=== PATIENT | female | born 1960 | race Two or more races ===

== ENCOUNTER 2023-06-16 17:09 | Inpatient (IN) | payer MEDICAID ==
[~2023-06-16] VITALS: Ht 167.6 cm; Wt 72.9 kg
[2023-06-16 18:16] LABS: BASOPHILS % (AUTO) 0.2 % (0.0-2.0); EOSINOPHILS % (AUTO) 0 % (1.0-6.0); HEMATOCRIT 31.2 % (36-46); LYMPHOCYTES # (AUTO) 0.5 K/uL (1.0-4.8); LYMPHOCYTES % (AUTO) 2.5 % (22.0-44.0); MEAN CORPUSCULAR HEMOGLOBIN 25.1 pg (26.0-34.0); MEAN CORPUSCULAR HGB CONC 32.2 G/dL (31.0-37.0); MEAN CORPUSCULAR VOLUME 78 fL (80-100); MONOCYTES % (AUTO) 4.8 % (2.0-9.0); NEUTROPHILS # (AUTO) 19.7 K/uL (1.8-7.7); PLATELET COUNT (AUTO) 630 K/uL (150-450); RED CELL DISTRIBUTION WIDTH 15.1 % (11.5-14.5); WHITE BLOOD COUNT (AUTO) 21.3 K/uL (4.5-11.0)
[2023-06-16 18:17] LABS: NEUTROPHILS % (AUTO) 92.5 % (40.0-70.0)
[2023-06-16 18:25] LABS: CALCIUM, TOTAL 9.2 mg/dL (8.8-10.5); CREATININE 1.04 mg/dL (0.60-1.30); POTASSIUM 3.9 mmol/L (3.5-5.1)
[2023-06-16 18:31] LABS: ALBUMIN 2.8 g/dL (3.4-5.0); BILIRUBIN,TOTAL 0.4 mg/dL (0.1-1.0); TOTAL PROTEIN, SERUM 7.9 g/dL (6.4-8.2)
[2023-06-16 18:35] LABS: TROPONIN I-HIGH SENSITIVITY 126 ng/L (<51)
[2023-06-16 18:42] LABS: APPEARANCE,URINE CLEAR (CLEAR); BILIRUBIN,URINE NEGATIVE (NEGATIVE); COLOR,URINE YELLOW (YELLOW); GLUCOSE, URINE (UA) 300-500 mg/dL (NEGATIVE); KETONES,URINE TRACE mg/dL (NEGATIVE); LEUKOCYTE ESTERASE ,URINE SMALL (NEGATIVE); NITRATE,URINE POSITIVE (NEGATIVE); OCCULT BLOOD,URINE TRACE (NEGATIVE); PH,URINE 5.5 (5.0-8.0); PROTEIN,URINE 100-200,SEE CONFIRM mg/dL (NEGATIVE); SPECIFIC GRAVITIY, URINE 1.016 (1.003-1.030); UROBILINOGEN,URINE <=1.0 mg/dL (<=1.0)
[2023-06-16 18:52] LABS: AMORPHOUS SEDIMENT,UR Few /LPF (None Seen); BACTERIA,URINE Few /HPF (None Seen); RBC,URINE 0-2 /HPF (0-2); SQUAMOUS EPITHELIAL CELL,UR Few /LPF (None Seen); SULFOSALICYLIC ACID,URINE 2+ (Negative)
[2023-06-16 19:49] LABS: B-TYPE NATRIURETIC PEPTIDE 68 pg/mL (0-100)
[2023-06-16 19:51] LABS: LACTIC ACID 2.1 mmol/L (0.4-2.0)
[2023-06-16] MEDS ORDERED: 0.9% SODIUM CHLORIDE 10 ML SYRINGE IVP PRN (20:15)
[2023-06-16] MEDS: ASPIRIN 325 MG TABLET PO ONE (21:00)
[2023-06-16] MEDS: NITROGLYCERIN 2% (1 GM=INCH) OINTMENT PACKET TP ONE (21:00)
[2023-06-16 21:44] VITALS: BP 120/62; PULSE 93; RESP 19; TEMP 100.9
[2023-06-16] MEDS ORDERED: DEXTROSE 50%-WATER 25 GM/50 ML SYRINGE IVP PRN (22:30)
[2023-06-16 22:48] LABS: GLUCOSE,RANDOM 237 mg/dL (70-110); LACTATE DEHYDROGENASE 150 U/L (81-234)
[2023-06-16] MEDS: SODIUM CHLORIDE 0.9% 2,200 ML IV ONE (23:14)
[2023-06-16] MEDS: INSULIN LISPRO 100 UNITS/ML SQ PRN (23:16)
[2023-06-16] MEDS: INSULIN GLARGINE,HUM.REC.ANLOG 100 UNITS/ML SQ SCH (23:16)
[2023-06-16 23:21] LABS: TROPONIN I-HIGH SENSITIVITY 121 ng/L (<51)
[2023-06-16] MEDS: ACETAMINOPHEN 650 MG/20.3 ML SOLUTION UDCUP PO PRN (23:24)
[2023-06-16] MEDS: CefTRIAXone 1 GM/DEXTROSE 50 ML IV ONE (23:24)
[2023-06-16 23:56] LABS: % IRON SATURATION 3.6 % (22-44)
[2023-06-17] VITALS (8 sets, daily range): BP systolic 108–161; BP diastolic 50–77; PULSE 75–97; RESP 16–19; TEMP 98.1–102.9
[2023-06-17] MEDS ORDERED: ONDANSETRON HCL 4 MG/2 ML VIAL IVP PRN
[2023-06-17] MEDS ORDERED: SITA1TBM7 PO ×2 (00:13→00:39)
[2023-06-17] MEDS ORDERED: METF-283 PO (00:14)
[2023-06-17] MEDS ORDERED: NEBI2.5T6 (00:16)
[2023-06-17] MEDS: HEPARIN SODIUM,PORCINE 5,000 UNITS/ML VIAL SQ SCH (00:34)
[2023-06-17] MEDS ORDERED: METF-283 (00:39)
[2023-06-17] MEDS ORDERED: NEBI5TAB11 PO (00:39)
[2023-06-17] MEDS ORDERED: INSLAN SQ (00:39)
[2023-06-17 04:38] LABS: INFLUENZA A-RTPCR,COMBO NEGATIVE (NEGATIVE); INFLUENZA B-RTPCR,COMBO NEGATIVE (NEGATIVE); RESPIRATORY SYNCYTIAL VRS-PCR NEGATIVE (NEGATIVE); SARS COVID19 RTPCR, COMBO NEGATIVE (NEGATIVE)
[2023-06-17 08:47] LABS: TROPONIN I-HIGH SENSITIVITY 71 ng/L (<51)
[2023-06-17] MEDS: DOCUSATE SODIUM 100 MG CAPSULE PO SCH (09:01)
[2023-06-17] MEDS: ACETAMINOPHEN 325 MG TABLET PO PRN (09:04)
[2023-06-17] MEDS: SODIUM CHLORIDE 0.9% 1,000 ML IV ONE (16:16)
[2023-06-17] MEDS: PIPERACILLIN/TAZO 3.375 GM/D5W 50 ML IV SCH (16:17)
[2023-06-17 23:08] LABS: GLUCOMETER DEV NAME(LOC) 5S.1B; GLUCOSE,POINT OF CARE 242 MG/DL (70-110)
[2023-06-17 23:08] LABS: GLUCOMETER DEV NAME(LOC) 5S.1B; GLUCOSE,POINT OF CARE 211 MG/DL (70-110)
[2023-06-17] MEDS: *CLINICAL-LEVOFLOXACIN IVPB DOSING CLINICAL ONE (23:14)
[2023-06-17] MEDS: LEVOFLOXACIN 750 MG/D5% WATER 150 ML IV SCH (23:34)
[2023-06-18 01:27] LABS: GLUCOMETER DEV NAME(LOC) 5N.1D; GLUCOSE,POINT OF CARE 238 MG/DL (70-110)
[2023-06-18 01:27] LABS: GLUCOMETER DEV NAME(LOC) 5N.1D; GLUCOSE,POINT OF CARE 95 MG/DL (70-110)
[2023-06-18 01:27] LABS: GLUCOMETER DEV NAME(LOC) 5N.1D; GLUCOSE,POINT OF CARE 271 MG/DL (70-110)
[2023-06-18 04:57] VITALS: BP 100/49; PULSE 73; RESP 16; TEMP 98.7
[2023-06-18 06:33] LABS: BASOPHILS % (AUTO) 0.5 % (0.0-2.0); EOSINOPHILS % (AUTO) 1.2 % (1.0-6.0); HEMOGLOBIN 9.5 g/dL (12.0-16.0); LYMPHOCYTES # (AUTO) 1.8 K/uL (1.0-4.8); LYMPHOCYTES % (AUTO) 16.8 % (22.0-44.0); MEAN CORPUSCULAR HEMOGLOBIN 25.7 pg (26.0-34.0); MEAN CORPUSCULAR HGB CONC 32.8 G/dL (31.0-37.0); MEAN CORPUSCULAR VOLUME 78 fL (80-100); MONOCYTES # (AUTO) 0.8 K/uL (0.1-1.0); MONOCYTES % (AUTO) 8.1 % (2.0-9.0); NEUTROPHILS # (AUTO) 7.6 K/uL (1.8-7.7); NEUTROPHILS % (AUTO) 73.4 % (40.0-70.0); PLATELET COUNT (AUTO) 613 K/uL (150-450); RED CELL DISTRIBUTION WIDTH 15.4 % (11.5-14.5); WHITE BLOOD COUNT (AUTO) 10.4 K/uL (4.5-11.0)
[2023-06-18 06:40] LABS: ANION GAP 7 mmol/L (8-16); CALCIUM, TOTAL 8.4 mg/dL (8.8-10.5); CARBON DIOXIDE 27 mmol/L (22-29); CHLORIDE 102 mmol/L (98-107); CREATININE 0.79 mg/dL (0.60-1.30); GLOMERULAR FILTR. RATE CALC > 60 mL/min (>60); GLUCOSE,RANDOM 203 mg/dL (70-110); POTASSIUM 3.8 mmol/L (3.5-5.1); SODIUM SERUM 136 mmol/L (136-145); UREA NITROGEN, BLOOD 11 mg/dL (7-18)
[2023-06-18 06:51] LABS: TROPONIN I-HIGH SENSITIVITY 32 ng/L (<51)
[2023-06-18 07:05] LABS: GLUCOMETER DEV NAME(LOC) 5N.1D; GLUCOSE,POINT OF CARE 190 MG/DL (70-110)
[2023-06-18 08:00] VITALS: BP 142/60; PULSE 88; RESP 16; TEMP 98.3
[2023-06-18 12:00] VITALS: BP 132/55; PULSE 91; RESP 16; TEMP 100.7
[2023-06-18] MEDS ORDERED: SODIUM CHLORIDE 0.9% 100 ML ONE (15:38)
[2023-06-18] MEDS ORDERED: IOHEXOL 350 MG/ML 100 ML VIAL ONE (15:38)
[2023-06-18 16:00] VITALS: BP 116/54; PULSE 85; RESP 18; TEMP 99.2
[2023-06-18 17:30] LABS: GLUCOMETER DEV NAME(LOC) 5N.1D; GLUCOSE,POINT OF CARE 317 MG/DL (70-110)
[2023-06-18 17:30] LABS: GLUCOMETER DEV NAME(LOC) 5N.1D; GLUCOSE,POINT OF CARE 257 MG/DL (70-110)
[2023-06-18 18:54] VITALS: TEMP 101.3
[2023-06-18 19:40] VITALS: BP 104/53; PULSE 100; RESP 18; TEMP 101.1
[2023-06-19] VITALS (10 sets, daily range): BP systolic 116–140; BP diastolic 51–77; PULSE 75–88; RESP 17–20; TEMP 97.9–100.6
[2023-06-19 08:22] LABS: BASOPHILS % (AUTO) 0.9 % (0.0-2.0); EOSINOPHILS % (AUTO) 1.3 % (1.0-6.0); HEMATOCRIT 27.6 % (36-46); HEMOGLOBIN 9.2 g/dL (12.0-16.0); LYMPHOCYTES # (AUTO) 1.6 K/uL (1.0-4.8); LYMPHOCYTES % (AUTO) 17.1 % (22.0-44.0); MEAN CORPUSCULAR HGB CONC 33.4 G/dL (31.0-37.0); MEAN CORPUSCULAR VOLUME 78 fL (80-100); MONOCYTES # (AUTO) 0.8 K/uL (0.1-1.0); MONOCYTES % (AUTO) 8.1 % (2.0-9.0); NEUTROPHILS % (AUTO) 72.6 % (40.0-70.0); PLATELET COUNT (AUTO) 692 K/uL (150-450); RED BLOOD CELL COUNT(AUTO) 3.55 MIL/uL (4.00-5.20); RED CELL DISTRIBUTION WIDTH 15.1 % (11.5-14.5); WHITE BLOOD COUNT (AUTO) 9.6 K/uL (4.5-11.0)
[2023-06-19 08:46] LABS: ALANINE AMINOTRANSFERASE 23 U/L (12-78); ALBUMIN 2.3 g/dL (3.4-5.0); ALKALINE PHOSPHATASE 146 U/L (46-116); ANION GAP 6 mmol/L (8-16); ASPARTATE AMINOTRANSFERASE 18 U/L (15-37); BILIRUBIN,TOTAL 0.5 mg/dL (0.1-1.0); CALCIUM, TOTAL 8.7 mg/dL (8.8-10.5); CARBON DIOXIDE 29 mmol/L (22-29); CHLORIDE 99 mmol/L (98-107); CREATININE 0.85 mg/dL (0.60-1.30); GLOMERULAR FILTR. RATE CALC > 60 mL/min (>60); GLUCOSE,RANDOM 216 mg/dL (70-110); POTASSIUM 4.1 mmol/L (3.5-5.1); SODIUM SERUM 134 mmol/L (136-145); TOTAL PROTEIN, SERUM 7.2 g/dL (6.4-8.2); UREA NITROGEN, BLOOD 13 mg/dL (7-18)
[2023-06-19 10:06] LABS: GLUCOMETER DEV NAME(LOC) 5S.1B; GLUCOSE,POINT OF CARE 267 MG/DL (70-110)
[2023-06-19] MEDS ORDERED: SITA100 PO (11:15)
[2023-06-19] MEDS ORDERED: METF-1211 PO (11:15)
[2023-06-19 11:36] LABS: GLUCOMETER DEV NAME(LOC) 5N.1D; GLUCOSE,POINT OF CARE 225 MG/DL (70-110)
[2023-06-19 12:36] LABS: GLUCOMETER DEV NAME(LOC) 5N.1D; GLUCOSE,POINT OF CARE 342 MG/DL (70-110)
[2023-06-19] MEDS ORDERED: SODIUM CHLORIDE 0.9% 500 ML IV ONE (21:55)
[2023-06-20] VITALS: TEMP 99
[2023-06-20 00:26] LABS: GLUCOMETER DEV NAME(LOC) 6S.2; GLUCOSE,POINT OF CARE 360 MG/DL (70-110)
[2023-06-20 04:12] VITALS: BP 126/59; PULSE 72; RESP 18; TEMP 98.2
[2023-06-20 06:50] LABS: GLUCOMETER DEV NAME(LOC) 6N.2B; GLUCOSE,POINT OF CARE 249 MG/DL (70-110)
[2023-06-20 07:10] LABS: GLUCOMETER DEV NAME(LOC) 5N.1D; GLUCOSE,POINT OF CARE 323 MG/DL (70-110)
[2023-06-20 07:58] VITALS: BP 112/59; PULSE 70; RESP 18; TEMP 97.3
[2023-06-20] MEDS: ERTAPENEM SODIUM 1 GM in SODIUM CHLORIDE 0.9% 50 ML IV SCH (13:32)
[2023-06-20 16:29] VITALS: BP 132/64; PULSE 75; RESP 18; TEMP 98.2
[2023-06-20 19:20] VITALS: BP 129/60; PULSE 81; RESP 20; TEMP 98.3
[2023-06-20 19:36] LABS: GLUCOMETER DEV NAME(LOC) 4E.2; GLUCOSE,POINT OF CARE 325 MG/DL (70-110)
[2023-06-20 19:36] LABS: GLUCOMETER DEV NAME(LOC) 6N.2B; GLUCOSE,POINT OF CARE 411 MG/DL (70-110)
[2023-06-20] MEDS: INSULIN GLARGINE,HUM.REC.ANLOG 100 UNITS/ML SQ SCH (20:10)
[2023-06-20] MEDS ORDERED: DEXTROSE 50%-WATER 25 GM/50 ML SYRINGE IVP PRN (21:45)
[2023-06-20] MEDS: INSULIN LISPRO 100 UNITS/ML SQ PRN (21:46)
[2023-06-21] MEDS: PEG 400/HYPROMELLOSE/GLYCERIN 15 ML OPHTHALMIC SOLUTION OU PRN (00:08)
[2023-06-21 00:16] LABS: GLUCOMETER DEV NAME(LOC) 6N.2B; GLUCOSE,POINT OF CARE 402 MG/DL (70-110)
[2023-06-21 04:15] VITALS: BP 116/62; PULSE 75; RESP 18; TEMP 97.5
[2023-06-21 06:35] LABS: GLUCOMETER DEV NAME(LOC) 4E.2; GLUCOSE,POINT OF CARE 148 MG/DL (70-110)
[2023-06-21 08:26] VITALS: BP 117/62; PULSE 68; RESP 18; TEMP 98
[2023-06-21 19:35] VITALS: BP 133/58; PULSE 84; RESP 20; TEMP 98.1
[2023-06-22 01:16] LABS: GLUCOMETER DEV NAME(LOC) 6N.2B; GLUCOSE,POINT OF CARE 312 MG/DL (70-110)
[2023-06-22 01:16] LABS: GLUCOMETER DEV NAME(LOC) 6S.2; GLUCOSE,POINT OF CARE 289 MG/DL (70-110)
[2023-06-22 01:16] LABS: GLUCOMETER DEV NAME(LOC) 6N.2B; GLUCOSE,POINT OF CARE 378 MG/DL (70-110)
[2023-06-22 04:45] VITALS: BP 132/65; PULSE 78; RESP 18; TEMP 98.5
[2023-06-22 08:02] VITALS: BP 112/64; PULSE 78; RESP 20; TEMP 98.4
[2023-06-22 12:16] LABS: GLUCOMETER DEV NAME(LOC) 6N.2B; GLUCOSE,POINT OF CARE 179 MG/DL (70-110)
[2023-06-22 12:16] LABS: GLUCOMETER DEV NAME(LOC) 6N.2B; GLUCOSE,POINT OF CARE 266 MG/DL (70-110)
[2023-06-22 15:53] VITALS: BP 129/68; PULSE 78; RESP 19; TEMP 97.7
[2023-06-22 18:10] LABS: GLUCOMETER DEV NAME(LOC) 4E.2; GLUCOSE,POINT OF CARE 279 MG/DL (70-110)
[2023-06-22 19:45] VITALS: BP 135/73; PULSE 84; RESP 20; TEMP 98.1
[2023-06-22] MEDS: INSULIN GLARGINE,HUM.REC.ANLOG 100 UNITS/ML SQ SCH (20:36)
[2023-06-23 03:36] LABS: GLUCOMETER DEV NAME(LOC) 6S.2; GLUCOSE,POINT OF CARE 376 MG/DL (70-110)
[2023-06-23 04:56] VITALS: BP 140/68; PULSE 73; RESP 20; TEMP 98.2
[2023-06-23 07:26] LABS: ANION GAP 9 mmol/L (8-16); CALCIUM, TOTAL 9.3 mg/dL (8.8-10.5); CARBON DIOXIDE 27 mmol/L (22-29); CHLORIDE 100 mmol/L (98-107); CREATININE 0.81 mg/dL (0.60-1.30); GLOMERULAR FILTR. RATE CALC > 60 mL/min (>60); GLUCOSE,RANDOM 225 mg/dL (70-110); SODIUM SERUM 136 mmol/L (136-145); UREA NITROGEN, BLOOD 16 mg/dL (7-18)
[2023-06-23 08:14] VITALS: BP 135/68; PULSE 74; RESP 19; TEMP 98.2
[2023-06-23 13:31] LABS: GLUCOMETER DEV NAME(LOC) 4E.2; GLUCOSE,POINT OF CARE 211 MG/DL (70-110)
[2023-06-23 13:31] LABS: GLUCOMETER DEV NAME(LOC) 6N.2B; GLUCOSE,POINT OF CARE 341 MG/DL (70-110)
[2023-06-23 21:02] VITALS: BP 157/76; PULSE 85; RESP 19; TEMP 98.1
[2023-06-23 23:05] LABS: GLUCOMETER DEV NAME(LOC) 6N.2B; GLUCOSE,POINT OF CARE 296 MG/DL (70-110)
[2023-06-23 23:05] LABS: GLUCOMETER DEV NAME(LOC) 6N.2B; GLUCOSE,POINT OF CARE 351 MG/DL (70-110)
[2023-06-24 04:15] VITALS: BP 116/65; PULSE 75; RESP 18; TEMP 98
[2023-06-24 07:03] LABS: BASOPHILS % (AUTO) 1.3 % (0.0-2.0); EOSINOPHILS % (AUTO) 2.8 % (1.0-6.0); HEMATOCRIT 31.5 % (36-46); HEMOGLOBIN 10.4 g/dL (12.0-16.0); LYMPHOCYTES # (AUTO) 3.3 K/uL (1.0-4.8); LYMPHOCYTES % (AUTO) 40.1 % (22.0-44.0); MEAN CORPUSCULAR HEMOGLOBIN 25.8 pg (26.0-34.0); MEAN CORPUSCULAR HGB CONC 33.2 G/dL (31.0-37.0); MEAN CORPUSCULAR VOLUME 78 fL (80-100); MONOCYTES # (AUTO) 0.9 K/uL (0.1-1.0); MONOCYTES % (AUTO) 10.6 % (2.0-9.0); NEUTROPHILS # (AUTO) 3.7 K/uL (1.8-7.7); NEUTROPHILS % (AUTO) 45.2 % (40.0-70.0); RED BLOOD CELL COUNT(AUTO) 4.04 MIL/uL (4.00-5.20); RED CELL DISTRIBUTION WIDTH 15.7 % (11.5-14.5); WHITE BLOOD COUNT (AUTO) 8.2 K/uL (4.5-11.0)
[2023-06-24 07:28] LABS: ALANINE AMINOTRANSFERASE 18 U/L (12-78); ALBUMIN 2.6 g/dL (3.4-5.0); ALKALINE PHOSPHATASE 128 U/L (46-116); ANION GAP 8 mmol/L (8-16); ASPARTATE AMINOTRANSFERASE 16 U/L (15-37); BILIRUBIN,TOTAL 0.3 mg/dL (0.1-1.0); CALCIUM, TOTAL 9.2 mg/dL (8.8-10.5); CARBON DIOXIDE 28 mmol/L (22-29); CHLORIDE 100 mmol/L (98-107); CREATININE 0.77 mg/dL (0.60-1.30); GLOMERULAR FILTR. RATE CALC > 60 mL/min (>60); GLUCOSE,RANDOM 155 mg/dL (70-110); POTASSIUM 3.9 mmol/L (3.5-5.1); SODIUM SERUM 136 mmol/L (136-145); TOTAL PROTEIN, SERUM 7.9 g/dL (6.4-8.2); UREA NITROGEN, BLOOD 17 mg/dL (7-18)
[2023-06-24 07:41] LABS: PLATELET COUNT (AUTO) 917 K/uL (150-450)
[2023-06-24 08:22] VITALS: BP 131/73; PULSE 77; RESP 20; TEMP 98.7
[2023-06-24 10:00] LABS: GLUCOMETER DEV NAME(LOC) 6S.2; GLUCOSE,POINT OF CARE 149 MG/DL (70-110)
[2023-06-24 10:40] LABS: RBC MORPHOLOGY COMMENT ABNORMAL RBC MORPH
[2023-06-24 12:15] LABS: GLUCOMETER DEV NAME(LOC) 6S.2; GLUCOSE,POINT OF CARE 236 MG/DL (70-110)
[2023-06-24 16:43] VITALS: BP 129/60; PULSE 78; RESP 20; TEMP 98.5
[2023-06-24 20:01] LABS: GLUCOMETER DEV NAME(LOC) 4E.2; GLUCOSE,POINT OF CARE 293 MG/DL (70-110)
[2023-06-24 20:33] VITALS: BP 140/84; PULSE 84; RESP 18; TEMP 98.2
[2023-06-24] MEDS: INSULIN GLARGINE,HUM.REC.ANLOG 100 UNITS/ML SQ SCH (21:32)
[2023-06-25 00:41] LABS: GLUCOMETER DEV NAME(LOC) 4E.2; GLUCOSE,POINT OF CARE 257 MG/DL (70-110)
[2023-06-25 05:16] VITALS: BP 127/73; PULSE 56; RESP 18; TEMP 98
[2023-06-25 06:16] LABS: GLUCOMETER DEV NAME(LOC) 4E.2; GLUCOSE,POINT OF CARE 167 MG/DL (70-110)
[2023-06-25 07:17] LABS: BASOPHILS % (AUTO) 1.2 % (0.0-2.0); EOSINOPHILS % (AUTO) 3.2 % (1.0-6.0); HEMATOCRIT 31.8 % (36-46); HEMOGLOBIN 10.5 g/dL (12.0-16.0); LYMPHOCYTES # (AUTO) 3.3 K/uL (1.0-4.8); LYMPHOCYTES % (AUTO) 43.7 % (22.0-44.0); MEAN CORPUSCULAR HGB CONC 33.2 G/dL (31.0-37.0); MEAN CORPUSCULAR VOLUME 79 fL (80-100); MONOCYTES # (AUTO) 0.8 K/uL (0.1-1.0); MONOCYTES % (AUTO) 10.2 % (2.0-9.0); NEUTROPHILS # (AUTO) 3.1 K/uL (1.8-7.7); NEUTROPHILS % (AUTO) 41.7 % (40.0-70.0); RED BLOOD CELL COUNT(AUTO) 4.05 MIL/uL (4.00-5.20); WHITE BLOOD COUNT (AUTO) 7.5 K/uL (4.5-11.0)
[2023-06-25 07:22] LABS: ANION GAP 11 mmol/L (8-16); CALCIUM, TOTAL 9.3 mg/dL (8.8-10.5); CARBON DIOXIDE 26 mmol/L (22-29); CHLORIDE 102 mmol/L (98-107); CREATININE 0.75 mg/dL (0.60-1.30); GLOMERULAR FILTR. RATE CALC > 60 mL/min (>60); GLUCOSE,RANDOM 155 mg/dL (70-110); POTASSIUM 3.9 mmol/L (3.5-5.1); SODIUM SERUM 139 mmol/L (136-145); UREA NITROGEN, BLOOD 16 mg/dL (7-18)
[2023-06-25 07:39] LABS: PLATELET COUNT (AUTO) 919 K/uL (150-450)
[2023-06-25 07:53] VITALS: BP 140/68; PULSE 71; RESP 19; TEMP 98.1
[2023-06-25 14:46] LABS: GLUCOMETER DEV NAME(LOC) 4E.2; GLUCOSE,POINT OF CARE 226 MG/DL (70-110)
[2023-06-25 15:45] VITALS: BP 135/70; PULSE 69; RESP 18
[2023-06-25 18:40] LABS: GLUCOMETER DEV NAME(LOC) 4E.2; GLUCOSE,POINT OF CARE 322 MG/DL (70-110)
[2023-06-25 19:40] VITALS: BP 131/68; PULSE 87; RESP 18; TEMP 98.4
[2023-06-25 22:00] LABS: GLUCOMETER DEV NAME(LOC) 4E.2; GLUCOSE,POINT OF CARE 311 MG/DL (70-110)
[2023-06-26] MEDS: FLUCONAZOLE 150 MG TABLET PO ONE (00:07)
[2023-06-26 04:05] VITALS: BP 134/77; PULSE 71; RESP 18; TEMP 97.4
[2023-06-26 06:48] LABS: EOSINOPHILS % (AUTO) 4.1 % (1.0-6.0); HEMOGLOBIN 10.5 g/dL (12.0-16.0); LYMPHOCYTES % (AUTO) 40.1 % (22.0-44.0); MEAN CORPUSCULAR HEMOGLOBIN 25.8 pg (26.0-34.0); MEAN CORPUSCULAR HGB CONC 32.8 G/dL (31.0-37.0); MEAN CORPUSCULAR VOLUME 79 fL (80-100); MONOCYTES # (AUTO) 0.8 K/uL (0.1-1.0); MONOCYTES % (AUTO) 10.3 % (2.0-9.0); NEUTROPHILS # (AUTO) 3.3 K/uL (1.8-7.7); NEUTROPHILS % (AUTO) 44.5 % (40.0-70.0); RED BLOOD CELL COUNT(AUTO) 4.07 MIL/uL (4.00-5.20); RED CELL DISTRIBUTION WIDTH 15.8 % (11.5-14.5); WHITE BLOOD COUNT (AUTO) 7.4 K/uL (4.5-11.0)
[2023-06-26 07:05] LABS: GLUCOMETER DEV NAME(LOC) 6N.2B; GLUCOSE,POINT OF CARE 139 MG/DL (70-110)
[2023-06-26 07:11] LABS: ANION GAP 8 mmol/L (8-16); CALCIUM, TOTAL 9.2 mg/dL (8.8-10.5); CARBON DIOXIDE 28 mmol/L (22-29); CHLORIDE 101 mmol/L (98-107); CREATININE 0.79 mg/dL (0.60-1.30); GLOMERULAR FILTR. RATE CALC > 60 mL/min (>60); GLUCOSE,RANDOM 132 mg/dL (70-110); POTASSIUM 4.2 mmol/L (3.5-5.1); SODIUM SERUM 137 mmol/L (136-145); UREA NITROGEN, BLOOD 19 mg/dL (7-18)
[2023-06-26 07:17] LABS: PLATELET COUNT (AUTO) 814 K/uL (150-450)
[2023-06-26 08:01] VITALS: BP 127/68; PULSE 76; RESP 18; TEMP 98.3
[2023-06-26] MEDS: ASPIRIN 81 MG CHEWABLE TABLET PO SCH (08:44)
[2023-06-26] MEDS ORDERED: GADOTERATE MEGLUMINE 10 MMOL/20 ML VIAL IVP ONE (10:06)
[2023-06-26] MEDS ORDERED: SODIUM CHLORIDE 0.9% 250 ML IV ONE (11:39)
[2023-06-26 12:00] LABS: GLUCOMETER DEV NAME(LOC) 6N.2B; GLUCOSE,POINT OF CARE 220 MG/DL (70-110)
[2023-06-26 15:36] VITALS: BP 135/69; PULSE 82; RESP 20; TEMP 98
[2023-06-26] MEDS ORDERED: ASPI-1450 PO (16:26)
[2023-06-26] MEDS ORDERED: ACET-2247 PO (16:27)
[2023-06-26] MEDS ORDERED: ERTA1VIA9 IVP (16:48)
[2023-06-26 18:56] LABS: GLUCOMETER DEV NAME(LOC) 6N.2B; GLUCOSE,POINT OF CARE 255 MG/DL (70-110)
== END 2023-06-26 18:35 | disposition home or self-care (01) | DRG 720 ==
LOC: EMS 17:13 → 5S 21:25 → 6S 06-19 17:25
PROVIDERS: ADMIT Internal Medicine; ATTEND Internal Medicine
DX: A41.50 Gram-negative sepsis, unspecified (principal); I24.89 Other forms of acute ischemic heart disease; E44.0 Moderate protein-calorie malnutrition; I82.612 Acute embolism and thrombosis of superficial veins of left upper extremity; K76.0 Fatty (change of) liver, not elsewhere classified; N39.0 Urinary tract infection, site not specified; E11.65 Type 2 diabetes mellitus with hyperglycemia; I10 Essential (primary) hypertension; J98.11 Atelectasis; R65.20 Severe sepsis without septic shock; K80.20 Calculus of gallbladder without cholecystitis without obstruction; Z20.822 Contact with and (suspected) exposure to COVID-19; R79.89 Other specified abnormal findings of blood chemistry; Z68.25 Body mass index [BMI] 25.0-25.9, adult; R20.2 Paresthesia of skin; K40.90 Unilateral inguinal hernia, without obstruction or gangrene, not specified as recurrent; K57.30 Diverticulosis of large intestine without perforation or abscess without bleeding; N28.1 Cyst of kidney, acquired
CPT/HCPCS: 0241U; 36245; 36569; 71045; 71260; 72158; 72193; 74160; 76937; 80048; 80053; 81001; 81002; 82947; 82962; 83540; 83550; 83605; 83615; 83690; 83735; 83880; 84145; 84300; 84484; 85025; 85045; 85730; 87040; 87077; 87086; 87186; 87205; 93005; 93306; 93971; 97116; 97161; 97165; 97535; 99285; G0378; J0696; J1335; J1644; J1815; J1956; J2543; J7030; J7040; J7050; Q9967; 36415-L1; 36415-TC